=== PATIENT | male | born 1960 | race Two or more races ===

== ENCOUNTER → 2024-01-13 | Emergency (ER) | payer SELFPAY ==
[~2024-01-13] VITALS: Ht 172.7 cm; Wt 63.5 kg
[~2024-01-13] MED LIST: IBUP-1957 PO
[2024-01-13 07:28] VITALS: BP 113/75; TEMP 98.4
[2024-01-13 07:33] VITALS: O2SAT 100
== END | disposition home or self-care (01) ==
LOC: ER 07:21
DX: S43.402A Unspecified sprain of left shoulder joint, initial encounter (principal); M54.50 Low back pain, unspecified; Z60.2 Problems related to living alone; V89.2XXA Person injured in unspecified motor-vehicle accident, traffic, initial encounter; Y93.89 Activity, other specified; Y92.89 Other specified places as the place of occurrence of the external cause; Y99.8 Other external cause status